=== PATIENT | female | born 1985 | race Caucasian/White ===

== ENCOUNTER → 2021-02-18 | Outpatient (CLI) | payer BC ==
[~2021-02-18] MED LIST: GADOBUTROL 10 MMOL/10 ML (GADAVIST) VIAL IV ONE
--- NOTE | 2021-02-18 12:27 | Diagnostic Imaging Report ---
CLINICAL INDICATION: Patient has chronic low back pain and problems with previous lumbar spine surgeries. EXAM: MRI of the lumbar spine performed without and with 9 mL of Gadavist IV contrast. Sequences include sagittal T2, sagittal T1, sagittal stir, axial T1, axial T2, axial T1 post IV contrast, sagittal T1 fat-sat post IV contrast. COMPARISON: None. FINDINGS: There are postop changes with posterior lumbar interbody fusion with L4-L5 laminotomy changes. There is no paraspinal fluid collection. There is no abnormal IV contrast enhancement. Susceptibility hardware artifact limits evaluation of the adjacent anatomical structures. There is no acute lumbar spine fracture or dislocation. The visualized portions of the distal spinal cord, conus medullaris, and cauda equina have normal anatomic appearance. The conus medullaris tip is seen at the lower L1 vertebral body level. Besides postoperative changes, there is paraspinal soft tissue abnormality seen. T11-T12: There is a diffuse disk bulge with moderate loss of disk space height and endplate irregularity. There is mild bilateral facet arthropathy. There is no significant central spinal canal or neural foramen narrowing. T12-L1: Unremarkable. L1-L2: Unremarkable. L2-L3: Unremarkable. L3-L4 there is mild bilateral facet arthropathy. There is no significant central spinal canal or neural foramen narrowing. L4-L5: There is a broad posterior disk bulge with superimposed small disk herniation in the left subarticular region. There is [id number]-nr-[id number] left neural foramen narrowing and nzaf-dw-xvfeljyi right neural foramen narrowing. There is no significant central canal stenosis. L5-S1: Postoperative changes are seen at this level. There is mild bilateral facet arthropathy. There is at least mild left neural foramen narrowing. There is no significant right neural foramen narrowing or central canal stenosis. IMPRESSION: 1: There is L5-S1 posterior lumbar interbody fusion. There is bilateral facet arthropathy with mild left L5-S1 neural foramen narrowing. 2: There is an L4-L5 broad posterior disk bulge with superimposed small disk herniation in the left subarticular region which causes moderate to severe left neural foramen narrowing. There is cpuu-lo-[id number] right neural foramen narrowing. 3: There is a T11-T12 diffuse disk bulge with moderate loss of disk space height. There is no significant central spinal canal or neural foramen narrowing. 4: The remainder of the lumbar spine findings are described above. Dictated by: Dictated on workstation # [id number]
== END ==
LOC: RAD 09:30
PROVIDERS: ATTEND Nurse Practitioner Family
DX: M51.14 Intervertebral disc disorders with radiculopathy, thoracic region (principal); G89.29 Other chronic pain; M79.2 Neuralgia and neuritis, unspecified; M48.061 Spinal stenosis, lumbar region without neurogenic claudication; Z98.1 Arthrodesis status
CPT/HCPCS: 72158